=== PATIENT | male | born 1980 | race Caucasian/White ===

== ENCOUNTER 2017-09-22 19:27 | Emergency (ER) | payer SELFPAY ==
[~2017-09-22] VITALS: Ht 170.2 cm; Wt 65.0 kg
[2017-09-22] MEDS ORDERED: KETOROLAC 30MG/ML VIAL IV STA (20:11)
[2017-09-22] MEDS ORDERED: MORPHINE SULFATE 4 MG/ML CPJ (NOT FOR IM USE) IV STA (20:11)
[2017-09-22] MEDS ORDERED: FAMOTIDINE 20MG/2ML VIAL IV STA (20:11)
[2017-09-22] MEDS ORDERED: ONDANSETRON HCL 4MG/2ML VIAL IV STA (20:11)
[2017-09-22] MEDS ORDERED: MAGNESIUM/ALUMINUM HYDROXIDE/SIMETHICONE 30ML UDC PO STA (20:11)
[2017-09-22] MEDS ORDERED: SODIUM CHLORIDE 0.9% 1,000 ML IV ONE (20:11)
[2017-09-22] MEDS ORDERED: THIAMINE HCL 100 MG in SODIUM CHLORIDE 0.9% 49 ML IV ONE (20:15)
[2017-09-22 20:54] LABS: BASOPHILS % 1.1 % (0.0-2.0); EOSINOPHILS % 0.3 % (0.0-5.0); HEMATOCRIT. 50.6 % (42.0-52.0); HEMOGLOBIN. 17.7 g/dL (14.0-18.0); LYMPHOCYTES % 33.9 % (20.0-50.0); MEAN CORPUSCULAR HEMOGLOBIN 30.7 pg (28.0-32.0); MEAN CORPUSCULAR VOLUME 87.9 fL (80.0-94.0); MEAN PLATELET VOLUME 9.5 fl (7.4-10.4); MONOCYTES % 9.3 % (2.0-8.0); NEUTROPHILS % 55.4 % (40.0-76.0); PLATELET 163 x1000/uL (130-400); RED BLOOD CELL COUNT 5.75 mill/uL (4.7-6.1)
[2017-09-22 21:01] LABS: CHLORIDE 95 mEq/L (98-107); INR 1.1; PROTHROMBIN TIME 10.6 sec (9.1-11.1)
[2017-09-22 21:09] LABS: CREATINE KINASE 471 IU/L (39-308)
[2017-09-22 21:13] LABS: CLARITY URINE CLEAR (CLEAR); COLOR URINE DARK YELLOW (YELLOW); ETHANOL BLOOD 332 mg/dL; KETONES URINE 2+ (NEGATIVE); LEUKOCYTE ESTERASE URINE NEGATIVE (NEGATIVE); NITRITE URINE NEGATIVE (NEGATIVE); OCCULT BLOOD URINE 2+ (NEGATIVE); PH URINE 5.5 (4.5-8.0); PROTEIN URINE 3+ (NEGATIVE); SPECIFIC GRAVITY URINE 1.029 (1.005-1.030)
[2017-09-22 21:21] LABS: AMMONIA 30 uMol/L (<32)
[2017-09-22 21:29] LABS: *AMPHETAMINES SCREEN URINE NEGATIVE (NEGATIVE); *BARBITURATES SCREEN URINE NEGATIVE (NEGATIVE)
[2017-09-22 21:30] LABS: *BENZODIAZEPINES SCREEN URINE NEGATIVE (NEGATIVE); *COCAINE SCREEN URINE NEGATIVE (NEGATIVE); METHADONE URINE SCREEN NEGATIVE (NEGATIVE); OPIATES URINE SCREEN NEGATIVE (NEGATIVE)
[2017-09-22 21:31] LABS: CANNABINOID URINE SCREEN NEGATIVE (NEGATIVE); PHENCYCLIDINE URINE SCREEN NEGATIVE (NEGATIVE)
[2017-09-23 00:39] VITALS: BP 163/78
== END 2017-09-23 00:31 | disposition home or self-care (01) ==
LOC: ER 19:27
DX: K29.20 Alcoholic gastritis without bleeding (principal); F10.10 Alcohol abuse, uncomplicated; Y90.8 Blood alcohol level of 240 mg/100 ml or more; Z79.899 Other long term (current) drug therapy
CPT/HCPCS: 36415; 71045; 80053; 80305; 81003; 82140; 82550; 83690; 83880; 84484; 85025; 85610; 93005; 96365; 96375; 99285; G0482; J1885; J2270; J2405; J3411; J3490; J7030; Z7610

== ENCOUNTER 2018-06-12 14:36 | Emergency (ER) | payer BC ==
[~2018-06-12] VITALS: Ht 160 cm; Wt 72.7 kg
[2018-06-12] MEDS ORDERED: FOLIC ACID 1 MG, THIAMINE HCL 100 MG, MVI, ADULT NO.1 10 ML in DEXTROSE 5% WATER 1,000 ML IV ONE ×4 (15:15)
[2018-06-12] MEDS ORDERED: ONDANSETRON HCL 4MG/2ML INJ IV ONE (15:15)
[2018-06-12] MEDS ORDERED: THIAMINE HCL 100 MG/1 ML 2ML VIAL ONE (15:25)
[2018-06-12 15:50] LABS: CHLORIDE 89 mEq/L (98-107)
[2018-06-12 15:53] LABS: BASOPHILS % 0.7 % (0.0-2.0); EOSINOPHILS % 0.2 % (0.0-5.0); HEMATOCRIT. 46.9 % (42.0-52.0); HEMOGLOBIN. 16.1 g/dL (14.0-18.0); LYMPHOCYTES % 16.6 % (20.0-50.0); MEAN CORPUSCULAR HEMOGLOBIN 27.3 pg (28.0-32.0); MEAN CORPUSCULAR VOLUME 79.4 fL (80.0-94.0); MEAN PLATELET VOLUME 9.9 fl (7.4-10.4); MONOCYTES % 9.3 % (2.0-8.0); NEUTROPHILS % 73.2 % (40.0-76.0); PLATELET 91 x1000/uL (130-400); RED CELL DISTRIBUTION WIDTH 14.4 % (11.6-14.6)
[2018-06-12 15:54] LABS: ETHANOL BLOOD 273 mg/dL
[2018-06-12 16:04] LABS: *AMPHETAMINES SCREEN URINE NEGATIVE (NEGATIVE); *BARBITURATES SCREEN URINE NEGATIVE (NEGATIVE)
[2018-06-12 16:05] LABS: *BENZODIAZEPINES SCREEN URINE NEGATIVE (NEGATIVE); *COCAINE SCREEN URINE NEGATIVE (NEGATIVE); CANNABINOID URINE SCREEN NEGATIVE (NEGATIVE); METHADONE URINE SCREEN NEGATIVE (NEGATIVE); OPIATES URINE SCREEN NEGATIVE (NEGATIVE); PHENCYCLIDINE URINE SCREEN NEGATIVE (NEGATIVE)
[2018-06-12 18:08] VITALS: BP 153/89
[2018-06-12] MEDS ORDERED: POTASSIUM CHLORIDE 20MEQ TABLET SR PO ONE (18:15)
== END 2018-06-12 18:37 | disposition home or self-care (01) ==
LOC: ER 14:36
DX: T51.0X1A Toxic effect of ethanol, accidental (unintentional), initial encounter (principal); E11.9 Type 2 diabetes mellitus without complications; E87.8 Other disorders of electrolyte and fluid balance, not elsewhere classified; F10.229 Alcohol dependence with intoxication, unspecified; F14.10 Cocaine abuse, uncomplicated; Y92.89 Other specified places as the place of occurrence of the external cause; Y90.8 Blood alcohol level of 240 mg/100 ml or more
CPT/HCPCS: 36415; 80048; 80305; 80307; 80320; 80329; 83735; 85025; 96365; 96366; 96375; 99283; J2405; J3411; J3490; J7070; G0480

== ENCOUNTER 2018-11-11 18:19 | Emergency (ER) | payer BC ==
[~2018-11-11] VITALS: Ht 160 cm; Wt 79.0 kg
[2018-11-11] MEDS ORDERED: FOLIC ACID 1 MG, THIAMINE HCL 100 MG, MVI, ADULT NO.1 10 ML in DEXTROSE 5% WATER 1,000 ML IV ONE ×4 (19:15)
[2018-11-11] MEDS ORDERED: CHLORDIAZEPOXIDE 25MG CAPSULE PO ONE (19:15)
[2018-11-11 19:49] LABS: BASOPHILS % 1.2 % (0.0-2.0); EOSINOPHILS % 0.4 % (0.0-5.0); HEMATOCRIT. 48.7 % (42.0-52.0); HEMOGLOBIN. 16.5 g/dL (14.0-18.0); LYMPHOCYTES % 19.8 % (20.0-50.0); MEAN CORPUSCULAR HEMOGLOBIN 29.6 pg (28.0-32.0); MEAN CORPUSCULAR VOLUME 87.2 fL (80.0-94.0); MEAN PLATELET VOLUME 9.8 fl (7.4-10.4); MONOCYTES % 6.4 % (2.0-8.0); NEUTROPHILS % 72.2 % (40.0-76.0); PLATELET 129 x1000/uL (130-400); RED BLOOD CELL COUNT 5.58 mill/uL (4.7-6.1); RED CELL DISTRIBUTION WIDTH 13.5 % (11.6-14.6)
[2018-11-11 19:53] LABS: CHLORIDE 97 mEq/L (98-107); INR 1.1; PROTHROMBIN TIME 10.9 sec (9.6-11.0)
[2018-11-11 20:12] LABS: ETHANOL BLOOD 322 mg/dL
[2018-11-11 21:21] LABS: CLARITY URINE CLEAR (CLEAR); COLOR URINE AMBER (YELLOW); KETONES URINE 3+ (NEGATIVE); LEUKOCYTE ESTERASE URINE NEGATIVE (NEGATIVE); NITRITE URINE NEGATIVE (NEGATIVE); OCCULT BLOOD URINE 2+ (NEGATIVE); PROTEIN URINE 4+ (NEGATIVE); SPECIFIC GRAVITY URINE 1.033 (1.005-1.030); UROBILINOGEN URINE 0.2 E.U./dL (0.2-1.0)
[2018-11-11 21:34] LABS: *AMPHETAMINES SCREEN URINE NEGATIVE (NEGATIVE); *BARBITURATES SCREEN URINE NEGATIVE (NEGATIVE); *BENZODIAZEPINES SCREEN URINE NEGATIVE (NEGATIVE); *COCAINE SCREEN URINE NEGATIVE (NEGATIVE)
[2018-11-11 21:35] LABS: CANNABINOID URINE SCREEN NEGATIVE (NEGATIVE); METHADONE URINE SCREEN NEGATIVE (NEGATIVE); OPIATES URINE SCREEN NEGATIVE (NEGATIVE); PHENCYCLIDINE URINE SCREEN NEGATIVE (NEGATIVE)
[2018-11-12 00:36] VITALS: BP 140/81
== END 2018-11-12 00:45 | disposition home or self-care (01) ==
LOC: ER 20:41
DX: T51.91XA Toxic effect of unspecified alcohol, accidental (unintentional), initial encounter (principal); Y92.89 Other specified places as the place of occurrence of the external cause
CPT/HCPCS: 36415; 80053; 80305; 80320; 81003; 83690; 85025; 85610; 96365; 96366; 99283; J3411; J3490; J7070; G0480

== ENCOUNTER 2018-11-23 12:59 | Inpatient (IN) | payer BC ==
[~2018-11-23] VITALS: Ht 160 cm; Wt 77.1 kg
[2018-11-23] MEDS ORDERED: SODIUM CHLORIDE 0.9% 1,000 ML IV ONE (14:13)
[2018-11-23] MEDS ORDERED: ONDANSETRON HCL 4MG/2ML INJ IV STA (14:13)
[2018-11-23] MEDS ORDERED: MORPHINE SULFATE 4 MG/ML CPJ (NOT FOR IM USE) IV STA (14:13)
[2018-11-23] MEDS ORDERED: FOLIC ACID 1 MG, THIAMINE HCL 100 MG, MVI, ADULT NO.1 10 ML in DEXTROSE 5% WATER 1,000 ML IV ONE ×4 (14:15)
[2018-11-23] MEDS ORDERED: CHLORDIAZEPOXIDE 25MG CAPSULE PO ONE (14:15)
[2018-11-23 15:35] LABS: CHLORIDE 93 mEq/L (98-107)
[2018-11-23 15:36] LABS: BASOPHILS % 1.2 % (0.0-2.0); EOSINOPHILS % 0.2 % (0.0-5.0); HEMATOCRIT. 47.5 % (42.0-52.0); HEMOGLOBIN. 16.2 g/dL (14.0-18.0); LYMPHOCYTES % 15.4 % (20.0-50.0); MEAN CORPUSCULAR HEMOGLOBIN 29.4 pg (28.0-32.0); MEAN CORPUSCULAR VOLUME 86.4 fL (80.0-94.0); MEAN PLATELET VOLUME 9.9 fl (7.4-10.4); NEUTROPHILS % 74.2 % (40.0-76.0); PLATELET 77 x1000/uL (130-400); RED CELL DISTRIBUTION WIDTH 13.9 % (11.6-14.6)
[2018-11-23 15:37] LABS: INR 1.1; PROTHROMBIN TIME 11.1 sec (9.6-11.0)
[2018-11-23 16:09] LABS: ETHANOL BLOOD 351 mg/dL
[2018-11-23] MEDS ORDERED: POTASSIUM CHLORIDE 20MEQ TABLET SR PO ONE (16:45)
[2018-11-23] MEDS ORDERED: HYDROCODONE/ACETAMINOPHEN 5/325MG TABLET PO PRN (19:00)
[2018-11-23] MEDS ORDERED: IPRATROPIUM/ALBUTEROL 0.5-3(2.5)MG/3ML NEB NEB PRN (19:00)
[2018-11-23] MEDS ORDERED: DOCUSATE SODIUM 100MG CAPSULE PO PRN (19:00)
[2018-11-23] MEDS ORDERED: MAGNESIUM/ALUMINUM HYDROXIDE/SIMETHICONE 30ML UDC PO PRN (19:00)
[2018-11-23] MEDS ORDERED: GUAIFENESIN 200MG/10ML SUGAR FREE UDC PO PRN (19:00)
[2018-11-23] MEDS ORDERED: DIPHENHYDRAMINE 50MG/ML VIAL IV PRN (19:00)
[2018-11-23] MEDS ORDERED: ACETAMINOPHEN 325MG TABLET PO PRN (19:00)
[2018-11-23] MEDS ORDERED: CLONIDINE 0.1MG TABLET PO PRN (19:00)
[2018-11-23] MEDS ORDERED: ONDANSETRON HCL 4MG/2ML INJ IV PRN (19:00)
[2018-11-23] MEDS ORDERED: NA PHOS,M-B/NA PHOS,DI-BA ENEMA 118ML PR PRN (19:00)
[2018-11-23] MEDS ORDERED: ACETAMINOPHEN 650MG SUPP PR PRN (19:00)
[2018-11-23 20:45] VITALS: BP 147/90
[2018-11-23] MEDS ORDERED: LORAZEPAM 2MG/ML CPJ IV STA (20:57)
[2018-11-23 21:18] LABS: HEPATITIS B SURFACE ANTIGEN NEGATIVE
[2018-11-23 21:48] LABS: HEPATITIS A AB IGM NEGATIVE (NEGATIVE)
[2018-11-23] MEDS: DEXT 5%/0.9% NACL 1,000 ML IV SCH (22:00)
[2018-11-23] MEDS ORDERED: POTASSIUM CHLORIDE INJ 40 MEQ in DEXT 5% WATER 250 ML IV NR (22:00)
[2018-11-23] MEDS: PANTOPRAZOLE SODIUM 40 MG/VIAL IV SCH (22:23)
[2018-11-23] MEDS: CHLORDIAZEPOXIDE 25MG CAPSULE PO SCH (22:23)
[2018-11-24] VITALS: BP 139/87
[2018-11-24 04:00] VITALS: BP 142/94
[2018-11-24] MEDS: DEXT 5%/0.9% NACL 1,000 ML IV SCH ×3 (06:00→21:37)
[2018-11-24] MEDS: CHLORDIAZEPOXIDE 25MG CAPSULE PO SCH ×3 (06:18→21:37)
[2018-11-24 07:49] VITALS: BP 140/91
[2018-11-24] MEDS: LORAZEPAM 2MG/ML CPJ IV PRN ×2 (07:54→17:01)
[2018-11-24 07:57] LABS: CHLORIDE 98 mEq/L (98-107)
[2018-11-24 08:02] LABS: BASOPHILS % 1.5 % (0.0-2.0); EOSINOPHILS % 2.3 % (0.0-5.0); HEMATOCRIT. 42.5 % (42.0-52.0); HEMOGLOBIN. 14.3 g/dL (14.0-18.0); LYMPHOCYTES % 22.1 % (20.0-50.0); MEAN CORPUSCULAR HEMOGLOBIN 29.3 pg (28.0-32.0); MEAN PLATELET VOLUME 10.3 fl (7.4-10.4); MONOCYTES % 8.5 % (2.0-8.0); NEUTROPHILS % 65.6 % (40.0-76.0); PLATELET 53 x1000/uL (130-400); RED BLOOD CELL COUNT 4.88 mill/uL (4.7-6.1)
[2018-11-24 08:14] LABS: LDL CHOLESTEROL 207 mg/dL (5-100)
[2018-11-24 08:15] LABS: CREATINE KINASE 202 IU/L (39-308); HDL CHOLESTEROL 64 mg/dL (40-59)
[2018-11-24 08:17] LABS: TOTAL IRON BINDING CAPACITY 258 ug/dL (250-450)
[2018-11-24 08:19] LABS: CREATINE KINASE MB FRACTION < 1.0 ng/mL (0.5-3.6)
[2018-11-24 08:21] LABS: T4 FREE 0.92 ng/dL (0.76-1.46)
[2018-11-24] MEDS: PANTOPRAZOLE SODIUM 40 MG/VIAL IV SCH (11:19)
[2018-11-24] MEDS: MULTIVITAMINS,THER W-MINERALS TABLET PO SCH (11:19)
[2018-11-24] MEDS: FOLIC ACID 1MG TABLET PO SCH (11:19)
[2018-11-24] MEDS: THIAMINE HCL 100MG TABLET PO SCH (11:19)
[2018-11-24 11:40] VITALS: BP 154/94
[2018-11-24] MEDS ORDERED: LORAZEPAM 2MG/ML CPJ IV NR (12:15)
[2018-11-24] MEDS ORDERED: POTASSIUM CHLORIDE 20MEQ TABLET SR PO NR (12:15)
[2018-11-24] MEDS ORDERED: LORAZEPAM 2MG/ML CPJ IV ONE (12:15)
[2018-11-24 16:05] VITALS: BP 147/97
[2018-11-24 20:00] VITALS: BP 146/97
[2018-11-25] VITALS: BP 150/100
[2018-11-25 04:00] VITALS: BP 129/91
[2018-11-25] MEDS: DEXT 5%/0.9% NACL 1,000 ML IV SCH ×3 (05:35→21:47)
[2018-11-25] MEDS: CHLORDIAZEPOXIDE 25MG CAPSULE PO SCH ×3 (05:35→21:50)
[2018-11-25 06:52] LABS: BASOPHILS % 1.1 % (0.0-2.0); EOSINOPHILS % 3.1 % (0.0-5.0); HEMATOCRIT. 40.2 % (42.0-52.0); HEMOGLOBIN. 13.8 g/dL (14.0-18.0); LYMPHOCYTES % 20.1 % (20.0-50.0); MEAN CORPUSCULAR HEMOGLOBIN 30.1 pg (28.0-32.0); MEAN CORPUSCULAR VOLUME 87.6 fL (80.0-94.0); MEAN PLATELET VOLUME 10.4 fl (7.4-10.4); MONOCYTES % 6.6 % (2.0-8.0); NEUTROPHILS % 69.1 % (40.0-76.0); RED BLOOD CELL COUNT 4.58 mill/uL (4.7-6.1); RED CELL DISTRIBUTION WIDTH 14.1 % (11.6-14.6)
[2018-11-25 07:49] LABS: CHLORIDE 102 mEq/L (98-107)
[2018-11-25 08:00] VITALS: BP 122/78
[2018-11-25] MEDS: FOLIC ACID 1MG TABLET PO SCH (09:17)
[2018-11-25] MEDS: THIAMINE HCL 100MG TABLET PO SCH (09:17)
[2018-11-25] MEDS: MULTIVITAMINS,THER W-MINERALS TABLET PO SCH (09:17)
[2018-11-25] MEDS: PANTOPRAZOLE SODIUM 40 MG/VIAL IV SCH (09:17)
[2018-11-25] MEDS: LORAZEPAM 2MG/ML CPJ IV PRN (09:28)
[2018-11-25 12:00] VITALS: BP 145/89
[2018-11-25] MEDS ORDERED: LORAZEPAM 2MG/ML CPJ IV PRN (13:15)
[2018-11-25 14:46] LABS: PLATELET 44 x1000/uL (130-400)
[2018-11-25] MEDS ORDERED: LACTULOSE 20G/30ML UDC PO SCH (17:00)
[2018-11-25] MEDS: LACTULOSE 20G/30ML UDC PO SCH (17:25)
[2018-11-25 20:00] VITALS: BP 140/90
[2018-11-26] VITALS: BP 126/84
[2018-11-26] MEDS: CHLORDIAZEPOXIDE 25MG CAPSULE PO SCH ×2 (05:11→14:19)
[2018-11-26] MEDS: DEXT 5%/0.9% NACL 1,000 ML IV SCH ×2 (05:11→14:00)
[2018-11-26 07:33] LABS: HEMATOCRIT 43.1 % (42.0-52.0); HEMOGLOBIN 14.6 g/dL (14.0-18.0); MEAN CORPUSCULAR HEMOGLOBIN 29.7 pg (28.0-32.0); MEAN CORPUSCULAR VOLUME 87.7 fL (80.0-94.0); PLATELET 51 x1000/uL (130-400); RED BLOOD CELL COUNT 4.91 mill/uL (4.7-6.1); RED CELL DISTRIBUTION WIDTH 14.4 % (11.6-14.6)
[2018-11-26 07:34] LABS: CHLORIDE 100 mEq/L (98-107)
[2018-11-26 08:00] VITALS: BP 140/95
[2018-11-26] MEDS: THIAMINE HCL 100MG TABLET PO SCH (10:23)
[2018-11-26] MEDS: MULTIVITAMINS,THER W-MINERALS TABLET PO SCH (10:23)
[2018-11-26] MEDS: LACTULOSE 20G/30ML UDC PO SCH ×2 (10:23→17:00)
[2018-11-26] MEDS: FOLIC ACID 1MG TABLET PO SCH (10:23)
[2018-11-26] MEDS: PANTOPRAZOLE SODIUM 40 MG/VIAL IV SCH (10:23)
[2018-11-26 12:39] VITALS: BP 133/95
[2018-11-26 17:18] VITALS: BP 133/95
== END 2018-11-26 17:43 | DRG 439 ==
LOC: ER 16:34 → 7WST 17:10 → SUPCPDRO 17:27 → ENRESERV 20:00
PROVIDERS: ADMIT Internal Medicine; ATTEND Internal Medicine
DX: K85.20 Alcohol induced acute pancreatitis without necrosis or infection (principal); E87.1 Hypo-osmolality and hyponatremia; F10.239 Alcohol dependence with withdrawal, unspecified; E78.5 Hyperlipidemia, unspecified; E86.0 Dehydration; E87.6 Hypokalemia; K25.9 Gastric ulcer, unspecified as acute or chronic, without hemorrhage or perforation; K70.9 Alcoholic liver disease, unspecified; K76.0 Fatty (change of) liver, not elsewhere classified; K82.8 Other specified diseases of gallbladder; Y90.8 Blood alcohol level of 240 mg/100 ml or more; K29.20 Alcoholic gastritis without bleeding; D69.59 Other secondary thrombocytopenia; R00.0 Tachycardia, unspecified
CPT/HCPCS: 36415; 71045; 72170; 74176; 76700; 80061; 80076; 80320; 82105; 82140; 82248; 82550; 82553; 83540; 83550; 83735; 84439; 84443; 84481; 84484; 85027; 86705; 86709; 86803; 87340; 93005; 93306; 93970; 97161; 99285; C9113; J2060; J2270; J2405; J3411; J3480; J3490; J7030; J7042; J7060; J7070; G0480